=== PATIENT | female | born 1970 | race Caucasian/White ===

== ENCOUNTER → 2017-01-12 | Outpatient (REF) ==
[~2017-01-12] MED LIST: LEXAPRO 10MG10 MG PO; LORTAB 7.5/5001 TAB PO; PROAIR HFA0.09 MG/AC IH; PROTONIX 40MG T40 MG PO; ZANTAC 150MG T150 MG PO
== END ==
LOC: WSOH 16:28
DX: Z02.89 Encounter for other administrative examinations (principal)

== ENCOUNTER → 2017-03-14 | Outpatient (CLI) | payer OTHER | LOC: MC.RAD 11:40 | DX: Z12.31 Encounter for screening mammogram for malignant neoplasm of breast (principal) ==

== ENCOUNTER → 2018-05-29 | Outpatient (CLI) | payer OTHER | LOC: MC.RAD 08:40 | DX: Z12.31 Encounter for screening mammogram for malignant neoplasm of breast (principal) ==

== ENCOUNTER 2019-05-01 16:15 | Outpatient (RCR) | payer OTHER | END 2019-05-21 | disposition home or self-care (01) | LOC: WSPT | DX: M22.2X2 Patellofemoral disorders, left knee (principal) ==

== ENCOUNTER → 2020-02-22 | Outpatient (CLI) | payer OTHER | LOC: COL.RAD 07:03 | DX: R43.2 Parageusia (principal) | CPT/HCPCS: A9585 ==

== ENCOUNTER 2020-04-25 09:05 | Day surgery (SDC) | payer OTHER ==
[2005-12-10 11:04] VITALS: BP 98/78
[~2020-04-25] VITALS: Ht 160 cm; Wt 79.4 kg
[2020-04-25 09:31] VITALS: BP 125/86; PULSE 64; TEMP 98.2
[2020-04-25] MEDS ORDERED: SYNTHROID0.05 MG/TA PO (09:36)
[2020-04-25] MEDS ORDERED: LEXAPRO20 MG PO (09:36)
[2020-04-25] MEDS ORDERED: VITAMIN D 50,1.25 MG PO (09:37)
[2020-04-25] MEDS ORDERED: ADULT MULTIVIT1 EACH PO (09:38)
[2020-04-25 10:55] VITALS: BP 97/70; PULSE 67; TEMP 97.3
--- NOTE | 2020-04-25 10:55 | NUR ---
Pt to [facility] [facility] [address] via ambulation. Pt drowsy, but awakens easily. Pt ambulates to recliner with stand by assistance. Warm blanket given. Water and pudding provided per pt request. Will continue to montior. Call light within reach.
[2020-04-25 11:10] VITALS: BP 98/67; PULSE 62
--- NOTE | 2020-04-25 11:10 | NUR ---
Pt continues to rest. Denies needs. Call light within reach.
[2020-04-25 11:25] VITALS: BP 100/73; PULSE 56
--- NOTE | 2020-04-25 11:25 | NUR ---
Pt continues to rest. Denies needs. Call light within reach.
[2020-04-25 11:40] VITALS: BP 101/75; PULSE 56
--- NOTE | 2020-04-25 11:40 | NUR ---
Pt continues to rest. Denies needs. Call light within reach.
--- NOTE | 2020-04-25 12:00 | NUR ---
Discharge instructions reviewed. Pt voices understanding. IV site discontinued with all parts intact. Pt up to dress. Call light within reach.
--- NOTE | 2020-04-25 12:15 | NUR ---
Pt escorted to private car via wheel chair. Pt accompanied home by her .
[2020-04-25 12:56] VITALS: BP 91/70; PULSE 67
== END 2020-04-25 12:15 | disposition home or self-care (01) ==
LOC: SDCO 09:05
DX: Z12.11 Encounter for screening for malignant neoplasm of colon (principal); Z80.0 Family history of malignant neoplasm of digestive organs; D12.5 Benign neoplasm of sigmoid colon; K31.7 Polyp of stomach and duodenum; K21.00 Gastro-esophageal reflux disease with esophagitis, without bleeding; I34.1 Nonrheumatic mitral (valve) prolapse; Z20.828 Contact with and (suspected) exposure to other viral communicable diseases; E78.00 Pure hypercholesterolemia, unspecified; E07.9 Disorder of thyroid, unspecified; F32.9 Major depressive disorder, single episode, unspecified; Z88.1 Allergy status to other antibiotic agents; R01.1 Cardiac murmur, unspecified; Z79.899 Other long term (current) drug therapy; Z98.84 Bariatric surgery status
CPT/HCPCS: J2704; J7030

== ENCOUNTER → 2020-12-19 | Outpatient (CLI) | payer OTHER ==
[~2020-12-19] MED LIST changes: +ADULT MULTIVIT1 EACH PO; +LEXAPRO20 MG PO; +SYNTHROID0.05 MG/TA PO; +VITAMIN D 50,1.25 MG PO
== END ==
LOC: COL.VAS 14:00
DX: I34.0 Nonrheumatic mitral (valve) insufficiency (principal)

== ENCOUNTER → 2020-12-19 | Outpatient (REF) | LOC: COL.LAB 08:22 | DX: Z20.822 Contact with and (suspected) exposure to COVID-19 (principal) ==

== ENCOUNTER → 2021-01-23 | Outpatient (CLI) | payer OTHER | LOC: MC.RAD 08:06 | DX: Z12.31 Encounter for screening mammogram for malignant neoplasm of breast (principal) ==

== ENCOUNTER → 2021-05-18 | Outpatient (REF) | payer OTHER | LOC: COL.ER 10:49 → COL.EMP 10:50 → COL.ER 10:50 → EDSTATUS 11:28 | DX: Z20.822 Contact with and (suspected) exposure to COVID-19 (principal) ==

== ENCOUNTER → 2021-06-18 | Outpatient (CLI) | payer OTHER | LOC: COL.RAD 08:55 | DX: M22.42 Chondromalacia patellae, left knee (principal) ==

== ENCOUNTER 2022-01-01 11:37 | Day surgery (SDC) | payer OTHER ==
[2005-12-10 11:04] VITALS: BP 98/78
[~2022-01-01] VITALS: Ht 160 cm; Wt 75.7 kg
[2022-01-01] MEDS ORDERED: CELEXA 20MG20 MG/TAB PO (13:47)
[2022-01-01] MEDS ORDERED: SAXENDA6 MG/ML SQ (13:48)
[2022-01-01 14:55] VITALS: BP 109/80; PULSE 63; TEMP 97.2
[2022-01-01 15:10] VITALS: BP 95/76; PULSE 62
[2022-01-01 15:26] VITALS: BP 124/83; PULSE 59; TEMP 97.7
[2022-01-01 15:34] VITALS: BP 113/78; PULSE 63
== END 2022-01-01 15:41 ==
LOC: SDCO 11:37
DX: Z12.11 Encounter for screening for malignant neoplasm of colon (principal); K31.7 Polyp of stomach and duodenum; Z98.84 Bariatric surgery status; K21.00 Gastro-esophageal reflux disease with esophagitis, without bleeding; Z79.899 Other long term (current) drug therapy; Z80.0 Family history of malignant neoplasm of digestive organs; Z86.010 Personal history of colon polyps
CPT/HCPCS: 43239; G0105; J2704; J3010; J7120

== ENCOUNTER → 2022-03-11 | Outpatient (CLI) | payer OTHER ==
[~2022-03-11] MED LIST changes: +CELEXA 20MG20 MG/TAB PO; +SAXENDA6 MG/ML SQ
== END ==
LOC: MC.RAD 08:19
DX: Z12.31 Encounter for screening mammogram for malignant neoplasm of breast (principal)

== ENCOUNTER → 2023-03-25 | Outpatient (CLI) | payer OTHER ==
[~2023-03-25] MED LIST changes: -CELEXA 20MG20 MG/TAB PO; +VITAMIN D250 MCG PO
== END ==
LOC: CANSCHCLI → MC.RAD 07:45
DX: Z12.31 Encounter for screening mammogram for malignant neoplasm of breast (principal)